=== PATIENT | female | born 1980 | race Caucasian/White ===

== ENCOUNTER 2018-05-29 13:35 | Outpatient (CLI) | payer OTHER | END 2018-05-29 23:59 | disposition home or self-care (01) | LOC: RAD 13:35 | PROVIDERS: ATTEND Family Medicine | DX: K76.0 Fatty (change of) liver, not elsewhere classified (principal) | CPT/HCPCS: 74018; 76700 ==

== ENCOUNTER 2020-06-01 18:56 | Emergency (ER) | payer OTHER ==
--- NOTE | 2020-06-01 18:59 | NUR ---
CALLED PT FOR TRIAGE, PT STATES SHE DOES NOT WANT TO BE SEEN. DOES NOT ELABORATE WHEN ASKED
== END 2020-06-01 19:17 | disposition left against medical advice (07) ==
LOC: ER 18:56
DX: R10.84 Generalized abdominal pain (principal); Z53.21 Procedure and treatment not carried out due to patient leaving prior to being seen by health care provider